=== PATIENT | female | born 2000 | race Caucasian/White ===

== ENCOUNTER 2022-10-18 15:38 | Outpatient (CLI) | payer OTHER, BC, SELFPAY ==
[2022-10-18 20:00] LABS: Chlamydia DNA Amplified* NOT DETECTED (No Detected); GC DNA Amplified* NOT DETECTED (No Detected)
== END 2022-10-18 15:39 | disposition home or self-care (01) ==
PROVIDERS: PCP Nurse Practitioner Family; Visit Provider Nurse Practitioner Family
DX: Z11.3 Encounter for screening for infections with a predominantly sexual mode of transmission (principal)
CPT/HCPCS: 82728; 86703; 87491; 87591

== ENCOUNTER 2023-06-06 10:59 | Outpatient (CLI) | payer OTHER, BC, SELFPAY ==
--- OUTSIDE RECORDS SUMMARY | 2023-06-06 11:06 | XMS_ITS | Clinical Summary ---
Author Name Unknown Organization [facility] Address [place], [place] [address] Care Team Providers Care Chiropractic Assistant Name Role Phone Magaly Hurtado Primary Care Provider Allergies No known active allergies Medications Medication Sig Dispensed Refills Start Date End Date Status norgestimate-ethinyl estradiol, 0.25-35 mg-mcg, (Estarylla) 0.25-35 mg-mcg tabletIndications:Acne , unspecified acne type, control counseling Take 1 Tablet by mouth once daily. 84 Tablet 3 06/27/2022 Active Active Problems No known active problems Immunizations Name Administration Dates Next Due DTaP 03/13/2002,01/12/2002,2001 HIB-HepB (Comvax) 01/12/2002,2001 Hepatitis B (Peds) 07/02/2002 Inactivated Polio Vaccine 07/02/2002,01/12/2002, 2001 MMR 09/25/2002 Pneumococcal conj 7-Valent (Prevnar 7) 2,2001 Varicella Vaccine 09/25/2002 Family History Medical History Relation Name Comments Good Health Father Diabetes Maternal Aunt Esophageal cancer Maternal Grandfather Cancer-colon Maternal Grandmother Asthma Maternal Uncle Good Health Mother Heart Disease Other great maternal grandmother and great maternal grandfather Relation Name Status Comments Father Maternal Aunt Maternal Grandfather Maternal Grandmother Alive Maternal Uncle Mother Alive Other Social History Tobacco Use Types Packs/Day Years Used Date Smoking Tobacco: Never Smokeless Tobacco: Never Tobacco Cessation:Counseling Given: Yes Alcohol Use Standard Drinks/Week Comments No 0 (1 standard drink = 0.6 oz pur e alcohol) PHQ-2 Answer Date Recorded PHQ-2 TOTAL SCORE 0 06/22/2020 Social Connections Answer Date Recorded Frequency of Communication with Friends and Fami ly Not on file 04/22/2021 Financial Resource Strain Answer Date R ecorded Difficulty of Paying Living Expenses Not on file 04/22/2021 Difficulty of Paying Living Expenses Not on file 04/22/2021 Sex and Gender Information Value Date Recorded Sex Assigned at Not on file Gender Identity Not on file Sexual Orientation Not on file Obstetrics History Last Filed Vital Signs Vital Sign Reading Time Taken Comments Blood Pressure 120/78 06/27/2022 3:24 PM SOFTWARE BUSINESS ANALYST Pulse 93 06/27/2022 3:24 PM SOFTWARE BUSINESS ANALYST Temperature 36.5 ??C (97.7 ??F) 03/12/2018 3:46 PM CS T Respiratory Rate 16 05/08/2019 8:15 AM SOFTWARE BUSINESS ANALYST Oxygen Saturation 98% 05/03/2020 1:36 PM SOFTWARE BUSINESS ANALYST Inhaled Oxygen Concentration - - Weight 42.2 kg (93 lb) 06/27/2022 3:24 PM SOFTWARE BUSINESS ANALYST Height 156.2 cm (5' 1.5) 05/12/2021 11:21 AM CS T Body Mass Index - - Plan of Treatment Health Maintenance Due Date Last Done Comments COVID-19 vaccine series (#1) 03/14/2002 HPV series for age 9-26 (1 - 2-dose series) 2012 Tdap 2012 Hepatitis C screening for age 18-79 09/12/2019 Depression screening for age 12+ 06/22/2021 06/22/2020, 05/03/2020, 05/08/2019, Additional history exists Chlamydia for age 16-24 08/29/2021 08/29/2020 Tetanus booster 2021 BMI (ht and wt on same day) for age 18+ 05/12/2022 05/12/2021, 06/22/2020, 05/03/2020 Pap test for age 21-65 2022 Influenza for age 9-49 12/21/2022 Pneumococcal series for age 6-64 Aged Out 01/12/2002, 2001 No longer eligibl e based on patient's age to complete this topic HIV for age 15-65 Completed 08/29/2020 Meningococcal series for age 11-21 Aged Out No longer eligible based on patient's age to complete this topic Care Teams Chiropractic Assistant Relationship Specialty Start Date End Date Magaly Hurtado PA [address] [place] [address] PCP - General Physician Repair Weaver 06/27/22
[2023-06-06 23:55] LABS: Chlamydia DNA Amplified* Not Detected (No Detected); GC DNA Amplified* Not Detected (No Detected)
== END 2023-06-06 11:00 | disposition home or self-care (01) ==
PROVIDERS: PCP Nurse Practitioner Family; Visit Provider Nurse Practitioner Family
DX: Z11.3 Encounter for screening for infections with a predominantly sexual mode of transmission (principal)
CPT/HCPCS: 86592; 86703; 86706; 86803; 87340; 87491; 87591

== ENCOUNTER 2024-05-22 10:47 | Outpatient (CLI) | payer OTHER, SELFPAY ==
[2024-05-22 15:55] LABS: Chlamydia DNA Amplified* NOT DETECTED (No Detected); GC DNA Amplified* NOT DETECTED (No Detected)
== END 2024-05-22 10:48 | disposition home or self-care (01) ==
LOC: FRMREF 10:48
PROVIDERS: PCP Nurse Practitioner Family; Visit Provider Nurse Practitioner Family
DX: Z11.3 Encounter for screening for infections with a predominantly sexual mode of transmission (principal)
CPT/HCPCS: 87491; 87591